=== PATIENT | female | born 1955 | race Caucasian/White ===

== ENCOUNTER 2016-11-05 05:27 | Inpatient (IN) ==
[2016-11-05] MEDS ORDERED: VANCOMYCIN INJ 1,000 MG in SODIUM CHLORIDE 0.9% 250 ML IV ONE (06:00)
[2016-11-05] MEDS ORDERED: CLINDAMYCIN INJ 900 MG in PREMIX 1 EACH IV ONE (06:00)
[2016-11-05] MEDS ORDERED: VANCOMYCIN 1,000 MG VIAL ONE (06:22)
[2016-11-05] MEDS ORDERED: CLINDAMYCIN INJ 50 ML IV ONE (06:22)
[2016-11-05] MEDS ORDERED: TRANEXAMIC ACID 1,000 MG/10 ML VIAL IV ONE (06:45)
[2016-11-05] MEDS ORDERED: PROMETHAZINE 25 MG/1 ML VIAL ONE (07:02)
[2016-11-05] MEDS ORDERED: LIDOCAINE 1% 5 ML VIAL ONE (07:02)
[2016-11-05] MEDS ORDERED: ONDANSETRON 4 MG/2 ML VIAL ONE (07:02)
[2016-11-05] MEDS ORDERED: PHENYLEPHRINE 1 MG/10 ML SYRINGE IV ONE (07:02)
[2016-11-05] MEDS ORDERED: PROPOFOL 200 MG/20 ML VIAL IV ONE (07:02)
--- NOTE | 2016-11-05 07:03 | History and Physical Update ---
History and Physical Update - History and Physical H&P was reviewed, the patient examined and there: are no changes in the patients condition since last H&P was completed.
[2016-11-05] MEDS: LACTATED RINGERS 1,000 ML IV SCH ×2 (07:05→15:46)
[2016-11-05] MEDS ORDERED: MAGNESIUM HYDROXIDE SUSP 30 ML UDCUP PO PRN (07:05)
[2016-11-05] MEDS ORDERED: PROMETHAZINE 25 MG/1 ML VIAL IM PRN (07:05)
[2016-11-05] MEDS ORDERED: LACTULOSE 20 GM/30 ML UDCUP PO PRN (07:05)
[2016-11-05] MEDS ORDERED: diphenhydrAMINE CAP 25 MG CAPSULE PO PRN (07:05)
[2016-11-05] MEDS ORDERED: ONDANSETRON 4 MG/2 ML VIAL IV PRN (07:05)
[2016-11-05] MEDS ORDERED: HYDROmorphone 2 MG/1 ML VIAL IV PRN (07:05)
[2016-11-05] MEDS ORDERED: NALOXONE 0.4 MG/ML VIAL IV PRN (07:05)
[2016-11-05] MEDS ORDERED: BISACODYL 10 MG SUPP RECTAL PRN (07:05)
[2016-11-05] MEDS ORDERED: TEMAZEPAM 7.5 MG CAPSULE PO PRN (07:05)
[2016-11-05] MEDS ORDERED: ROPIVACAINE 0.5% 30 ML VIAL ONE (07:46)
[2016-11-05] MEDS ORDERED: HYDROmorphone PCA 30 MG/30 ML SYRINGE IV ONE (08:52)
[2016-11-05] MEDS: HYDROmorphone PCA 30 MG/30 ML SYRINGE IV SCH (09:08)
--- NOTE | 2016-11-05 09:23 | Anesthesia Post-Op ---
Anesthesia Post OP - Post Ansesthetic Evaluation Patient seen in post op: Yes Resp: within normal limits CV: within normal limits Mental: within normal limits Temp: within normal limits [id number]: within normal limits Nausea and Vomiting: within normal limits Pain: within normal limits
--- NOTE | 2016-11-05 09:36 | XRay Report ---
Exam: XR knee 2V LT Date: 11/05/2016 7:08 AM Comparison: None Indication: Left knee replacement Technique:[AP and lateral left knee] Findings: Recent satisfactory left total knee replacement with postoperative findings. Impression: Recent satisfactory left total knee replacement. PROCEDURE INTERPRETED AT [facility] DEPARTMENT OF RADIOLOGY Final Report Signed by: Dr. Latrice Yepez
[2016-11-05] MEDS ORDERED: fentaNYL 100 MCG/2 ML VIAL ONE (10:53)
[2016-11-05] MEDS ORDERED: MIDAZOLAM 2 MG/2 ML VIAL ONE (10:53)
[2016-11-05] MEDS ORDERED: CLINDAMYCIN INJ 900 MG in PREMIX 1 EACH IV SCH (11:07)
--- NOTE | 2016-11-05 14:52 | Operative Note ---
DATE OF SURGERY: 11/05/2016 PREOPERATIVE DIAGNOSIS: OSTEOARTHRITIS LEFT KNEE. POSTOPERATIVE DIAGNOSIS: SAME OPERATIVE PROCEDURE: Left total knee (ATT[place]E). SURGEON: Devon Garcia Jr., MD NONPROFIT MANAGER: Alisa ANESTHESIA: Spinal. INDICATIONS: A 60-year-old white female with a longstanding osteoarthritis to her left knee. She rabago s maximized conservative treatment through the years including multiple injections, she has had a pre vious arthroscopic procedure performed as well. In recent months, she has had steadily worsening sym ptoms of pain, functional limitation, effusion, recently evaluated for big candidate for knee arthrop lasty. She presents today for elective procedure. OPERATIVE PROCEDURE: The patient was taken to the operating room under spinal anesthetic, positioned in the supine position. The left leg was positioned, prepped and draped in usual sterile manner. T he limb was elevated, exsanguinated, and the tourniquet inflated to 300 mmHg. She received Vancomyci n and Cleocin preoperatively. A midline incision was made over the anterior aspect of the left knee. Sharp dissection was carried down through skin and subcutaneous tissue. A median parapatellar arth rotomy performed of the knee revealing extensor tricompartmental degenerative changes and osteophytes involving all three compartments. There was significant cartilage loss medially. Intramedullary al ignment guides were used to make the appropriate cuts about the distal femur and proximal tibia, both were sized to a 5. The PCL retained, a 7-mm fixed bearing spacer selected. The patella was resurfa anil with a 35 button. After removal of all the trial components, the knee copiously irrigated and al l three components were cemented into place. After the cement hardened, the wound was closed over tw o 1/8-inch Hemovac drains in a standard fashion using #1 Vicryl for the arthrotomy, 2-0 Vicryl for th e subcutaneous layer and vanessa for skin. Tourniquet was deflated during wound closure at 34 minute s. Sterile dressing was applied. She was taken to the recovery room in a stable condition.
--- NOTE | 2016-11-05 15:32 | Pulmonology Progress Note ---
Pulmonary - PN: Subj Interval history: Patient is a 60-year-old white lady that has degenerative arthritis. She came in today and had a left knee replacement. She has a history of hypertension but otherwise been quite healthy. She did well with surgery today and is stable postop. She says she is not having any trouble breathing and is reasonably comfortable. She did not have any problem with anesthesia. Exam (Progress Note) - Constitutional Vitals: Period Temp Pulse Resp BP Sys/Kirkland Pulse Ox Last 24 Hr 97.2 F-97.9 F 61-76 16-20 100-138/67-94 97-100 General appearance: normal weight, no acute distress - Head Head exam: Present: normal inspection, normocephalic - Eye Eye exam: Present: EOMI. Absent: scleral icterus Pupils: Present: KACI - ENT ENT exam: Present: normal exam - Neck Neck exam: Present: normal inspection. Absent: lymphadenopathy, thyromegaly - Respiratory Respiratory exam: Present: clear to auscultation bilaterally - Cardiovascular Cardiovascular exam: Present: regular rate and rhythm. Absent: gallop, systolic murmur - GI/Abdominal GI/Abdominal exam: Present: normal bowel sounds, soft. Absent: organomegaly, tenderness - Extremities Exam Extremities exam: Present: other (Left knee is wrapped.) - Back Exam Back exam: Present: normal inspection - Neurological Exam Neurological exam: Present: alert, oriented X3, CN II-XII intact. Absent: motor sensory deficit - Psychiatric Psychiatric exam: Present: normal affect, normal mood - Skin Skin exam: Present: warm, dry Assessment and Plan (1) Osteoarthritis Status: Acute Assessment and plan: Patient has significant arthritis and comes in for knee replacement. Current Visit: Yes (2) Hypertension Status: Acute Assessment and plan: The patient appears to be medically stable at present. Current Visit: Yes (3) Status post total left knee replacement Status: Acute Assessment and plan: The patient had a knee replacement today and is doing well postop. She will start vigorous physical therapy soon. Current Visit: Yes
[2016-11-05] MEDS: NEBIVOLOL 5 MG TABLET PO SCH (15:45)
[2016-11-05] MEDS: CHLORTHALIDONE 25 MG TABLET PO SCH (15:45)
[2016-11-05] MEDS: DOCUSATE SODIUM 100 MG CAPSULE PO SCH ×2 (15:46→20:10)
[2016-11-05] MEDS: MELOXICAM 7.5 MG TABLET PO SCH (17:21)
[2016-11-05] MEDS: OMEGA 3 ACID ETHYL ESTERS 1 GM CAPSULE PO SCH (17:21)
[2016-11-05] MEDS: MAGNESIUM OXIDE 400 MG TABLET PO SCH (17:21)
[2016-11-05] MEDS: PANTOPRAZOLE 40 MG TABLET PO SCH (17:22)
[2016-11-05] MEDS: CLINDAMYCIN INJ 900 MG in PREMIX 1 EACH IV SCH (17:22)
--- NOTE | 2016-11-05 17:33 | Orthopedic Progress Note ---
Orthopedics - Subjective Interval history: Comfortable neurovascular intact discussed up in a.m. Exam - Constitutional Vitals: Period Temp Pulse Resp BP Sys/Kirkland Pulse Ox Last 24 Hr 97.1 F-97.9 F 61-76 16-20 100-138/67-94 97-100
[2016-11-06] MEDS: CLINDAMYCIN INJ 900 MG in PREMIX 1 EACH IV SCH (00:56)
[2016-11-06] MEDS: FONDAPARINUX 2.5 MG/0.5 ML SYRINGE SUBCUT SCH (03:48)
[2016-11-06 05:07] LABS: Basophils % 0.2 % (0.0-0.8); Eosinophils % 0.1 % (0.00-10.9); Hematocrit 34.9 VOL% (35.7-47.0); Hemoglobin 11.7 GM/DL (12.0-16.0); Immature Granulocytes % 0.6 %; Immature Granulocytes Absolute 0.07 #; Lymphocytes # 0.7 10*3/uL (1.4-4.0); Lymphocytes % 6.1 % (21.3-54.2); Mean Corpuscular HGB Conc 33.5 GM/DL (32-36); Mean Corpuscular Hemoglobin 30 PG (27-34); Mean Corpuscular Volume 88.4 FL (87-102); Mean Platelet Volume 11.2 FL (9.6-12.0); Monocytes % 8.6 % (1.7-12.7); Neutrophils # 10.1 10*3/uL (1.4-7.4); Neutrophils % 84.4 % (38.7-73.9); Platelet Count 172 T/CUMM (130-400); Red Blood Count 3.95 MC/CUMM (3.8-5.5); Red Cell Distribution Width 13.2 % (9.3-17.3); White Blood Count 11.9 T/CUMM (4-12)
[2016-11-06 05:34] LABS: Calcium 8.7 MG/DL (8.5-10.1); Osmolality,Calculated 285.3 MOS/KG (273-304); Potassium 4.1 MMOL/L (3.5-5.1)
[2016-11-06] MEDS: LACTATED RINGERS 1,000 ML IV SCH ×2 (06:10→18:59)
[2016-11-06] MEDS: HYDROmorphone PCA 30 MG/30 ML SYRINGE IV SCH (08:15)
--- NOTE | 2016-11-06 08:21 | Orthopedic Progress Note ---
Orthopedics - Subjective Interval history: H&H stable drain removed neurovascular intact ready to start PT likely home over the weekend with home health Exam - Constitutional Vitals: Period Temp Pulse Resp BP Sys/Kirkland Pulse Ox Last 24 Hr 97.1 F-97.9 F 61-83 16-20 100-142/66-94 95-100 Results - Labs CBC & BMP: 11/06/16 03:30 11/06/16 03:30 Specialty Discharge - Follow Up or Referrals Follow up with: Devon Garcia Jr., MD [Physician] -
[2016-11-06] MEDS: PANTOPRAZOLE 40 MG TABLET PO SCH (09:07)
[2016-11-06] MEDS: MAGNESIUM OXIDE 400 MG TABLET PO SCH (09:07)
[2016-11-06] MEDS: NEBIVOLOL 5 MG TABLET PO SCH (09:07)
[2016-11-06] MEDS: DOCUSATE SODIUM 100 MG CAPSULE PO SCH ×2 (09:07→20:11)
[2016-11-06] MEDS: OMEGA 3 ACID ETHYL ESTERS 1 GM CAPSULE PO SCH (09:07)
[2016-11-06] MEDS: MELOXICAM 7.5 MG TABLET PO SCH (09:07)
[2016-11-06] MEDS: CHLORTHALIDONE 25 MG TABLET PO SCH (09:07)
--- NOTE | 2016-11-06 10:24 | Pulmonology Progress Note ---
Pulmonary - PN: Subj Interval history: Patient is a 60-year-old white lady that has degenerative arthritis. She came in and had a left knee replacement. She has a history of hypertension but otherwise been quite healthy. She did well with surgery and had a fairly good night last night. She has not started any physical therapy yet. She says she did not sleep very well but she is relatively comfortable. She is not having any trouble with her breathing. Exam (Progress Note) - Constitutional Vitals: Period Temp Pulse Resp BP Sys/Kirkland Pulse Ox Last 24 Hr 97.1 F-97.9 F 61-83 16-20 103-142/66-87 95-100 Exam: General appearance: normal weight, no acute distress, she is comfortable lying in bed. - Head Head exam: Present: normal inspection, normocephalic - Eye Eye exam: Present: EOMI. Absent: scleral icterus Pupils: Present: KACI - ENT ENT exam: Present: normal exam - Neck Neck exam: Present: normal inspection. Absent: lymphadenopathy, thyromegaly - Respiratory Respiratory exam: Present: clear to auscultation bilaterally. She has no rales or wheezing present. - Cardiovascular Cardiovascular exam: Present: regular rate and rhythm. Absent: gallop, systolic murmur - GI/Abdominal GI/Abdominal exam: Present: normal bowel sounds, soft. Absent: organomegaly, tenderness - Extremities Exam Extremities exam: Present: other (Left knee is wrapped. Her lower leg is not swollen badly and she is moving it okay.) - Back Exam Back exam: Present: normal inspection - Neurological Exam Neurological exam: Present: alert, oriented X3, CN II-XII intact. Absent: motor sensory deficit - Psychiatric Psychiatric exam: Present: normal affect, normal mood - Skin Skin exam: Present: warm, dry Results - Labs CBC & BMP: 11/06/16 03:30 11/06/16 03:30 Assessment and Plan (1) Osteoarthritis Status: Acute Assessment and plan: Patient has significant arthritis and comes in for knee replacement. She did well with surgery yesterday. Current Visit: Yes (2) Hypertension Status: Acute Assessment and plan: The patient appears to be medically stable at present. She continues to do well. Current Visit: Yes (3) Status post total left knee replacement Status: Acute Assessment and plan: The patient had a knee replacement today and is doing well postop. She will start physical therapy today. Current Visit: Yes Specialty Discharge - Follow Up or Referrals Follow up with: Devon Garcia Jr., MD [Physician] -
--- NOTE | 2016-11-06 11:19 | Pathology Report from [facility] ---
[facility] [place] : [id number] PATIENT NAME : Melodie Wilkes ORDERING DR : YUMIKO CASTILLO JR, MD CLINICAL HX: LT knee osteoarthritis POST-OP DX: Same SPECIMEN INFO: LT knee bone & tissue GROSS DESCRIPTION: Received in formalin labeled MELODIE WILKES is an aggregate of bone, soft tissue and cartilage measuring 14.0 x 6.0 cm. The articular surfaces are focally degenerative with no subchondral eburnation seen. [employer] Supervisor tissue is submitted in one cassette. DIAGNOSIS FOR MELODIE WILKES: LEFT KNEE BONE & TISSUE: Gross and microscopic findings consistent with osteoarthritis. COLLECTED DATE: 11/05/2016 [facility] REPORT DATE: 11/06/2016 ELECTRONICALLY SIGNED BY: Yi Diehl III, M.D. 11/06/2016 - 9:27:46 [facility]
[2016-11-07] MEDS: FONDAPARINUX 2.5 MG/0.5 ML SYRINGE SUBCUT SCH (00:41)
[2016-11-07 06:25] LABS: Basophils % 0.1 % (0.0-0.8); Eosinophils # 0.1 10*3/uL (0.0-0.87); Eosinophils % 0.5 % (0.00-10.9); Hematocrit 34.5 VOL% (35.7-47.0); Hemoglobin 11.6 GM/DL (12.0-16.0); Immature Granulocytes % 0.6 %; Immature Granulocytes Absolute 0.06 #; Lymphocytes # 0.8 10*3/uL (1.4-4.0); Lymphocytes % 7.5 % (21.3-54.2); Mean Corpuscular HGB Conc 33.6 GM/DL (32-36); Mean Corpuscular Hemoglobin 30 PG (27-34); Mean Corpuscular Volume 88.2 FL (87-102); Mean Platelet Volume 10.7 FL (9.6-12.0); Monocytes # 0.8 10*3/uL (0.11-0.8); Monocytes % 7.5 % (1.7-12.7); Neutrophils # 8.8 10*3/uL (1.4-7.4); Neutrophils % 83.8 % (38.7-73.9); Platelet Count 177 T/CUMM (130-400); Red Blood Count 3.91 MC/CUMM (3.8-5.5); White Blood Count 10.5 T/CUMM (4-12)
[2016-11-07 06:43] LABS: Hypochromasia 1+
[2016-11-07 06:44] LABS: Platelet Estimate Normal
--- NOTE | 2016-11-07 09:11 | Orthopedic Progress Note ---
Orthopedics - Subjective Interval history: Comfortable dressing dry mobilizing in the [place]una likely home with home health over the weekend Exam - Constitutional Vitals: Period Temp Pulse Resp BP Sys/Kirkland Pulse Ox Last 24 Hr 97.6 F-98.3 F 76-81 18-20 101-126/67-76 91-95 Results - Labs CBC & BMP: 11/07/16 05:51 11/06/16 03:30 Specialty Discharge - Follow Up or Referrals Follow up with: Devon Garcia Jr., MD [Physician] -
--- NOTE | 2016-11-07 09:16 | Pulmonology Progress Note ---
Pulmonary - PN: Subj Interval history: Patient is a 60-year-old white lady that has degenerative arthritis. She came in and had a left knee replacement. She has a history of hypertension but otherwise been quite healthy. She did well with physical therapy yesterday and is moving around better. She says she still did not sleep very well. Otherwise she feels like she is doing better. Exam (Progress Note) - Constitutional Vitals: Period Temp Pulse Resp BP Sys/Kirkland Pulse Ox Last 24 Hr 97.6 F-98.3 F 76-81 18-20 101-126/67-76 91-95 Exam: General appearance: normal weight, no acute distress, she is comfortable lying in bed. She is not having any respiratory problems. - Head Head exam: Present: normal inspection, normocephalic - Eye Eye exam: Present: EOMI. Absent: scleral icterus Pupils: Present: KACI - ENT ENT exam: Present: normal exam - Neck Neck exam: Present: normal inspection. Absent: lymphadenopathy, thyromegaly - Respiratory Respiratory exam: Present: clear to auscultation bilaterally. She has no rales or wheezing present. - Cardiovascular Cardiovascular exam: Present: regular rate and rhythm. Absent: gallop, systolic murmur - GI/Abdominal GI/Abdominal exam: Present: normal bowel sounds, soft. Absent: organomegaly, tenderness - Extremities Exam Extremities exam: Present: other (Left knee is wrapped. Her lower leg is not swollen badly and she is moving it okay. She is getting around a little better. ) - Back Exam Back exam: Present: normal inspection - Neurological Exam Neurological exam: Present: alert, oriented X3, CN II-XII intact. Absent: motor sensory deficit - Psychiatric Psychiatric exam: Present: normal affect, normal mood - Skin Skin exam: Present: warm, dry Results - Labs CBC & BMP: 11/07/16 05:51 11/06/16 03:30 Assessment and Plan (1) Osteoarthritis Status: Acute Assessment and plan: Patient has significant arthritis and comes in for knee replacement. She continues to do well postop. Current Visit: Yes (2) Hypertension Status: Acute Assessment and plan: The patient appears to be medically stable at present. She continues to do well. She is doing well with physical therapy. Current Visit: Yes (3) Status post total left knee replacement Status: Acute Assessment and plan: The patient had a knee replacement and continues to do well postop. She will probably go home tomorrow. Current Visit: Yes Specialty Discharge - Follow Up or Referrals Follow up with: Devon Garcia Jr., MD [Physician] -
[2016-11-07] MEDS ORDERED: TEMAZEPAM 7.5 MG CAPSULE PO PRN (09:17)
[2016-11-07] MEDS: MELOXICAM 7.5 MG TABLET PO SCH (10:28)
[2016-11-07] MEDS: NEBIVOLOL 5 MG TABLET PO SCH (10:28)
[2016-11-07] MEDS: OMEGA 3 ACID ETHYL ESTERS 1 GM CAPSULE PO SCH (10:28)
[2016-11-07] MEDS: MAGNESIUM OXIDE 400 MG TABLET PO SCH (10:28)
[2016-11-07] MEDS: CHLORTHALIDONE 25 MG TABLET PO SCH (10:28)
[2016-11-07] MEDS: PANTOPRAZOLE 40 MG TABLET PO SCH (10:28)
[2016-11-07] MEDS: DOCUSATE SODIUM 100 MG CAPSULE PO SCH ×2 (10:29→20:21)
[2016-11-07] MEDS: LACTATED RINGERS 1,000 ML IV SCH (11:54)
[2016-11-08] MEDS: FONDAPARINUX 2.5 MG/0.5 ML SYRINGE SUBCUT SCH (01:57)
--- NOTE | 2016-11-08 08:46 | Orthopedic Progress Note ---
Orthopedics - Subjective Interval history: Comfortable tolerating PT well home likely tomorrow after PT Exam - Constitutional Vitals: Period Temp Pulse Resp BP Sys/Kirkland Pulse Ox Last 24 Hr 97.6 F-99.0 F 71-88 18-20 103-130/63-76 91-97 Results - Labs CBC & BMP: 11/07/16 05:51 11/06/16 03:30 Specialty Discharge - Follow Up or Referrals Follow up with: Devon Garcia Jr., MD [Physician] - 12/05/16 8:15 am
[2016-11-08] MEDS: MELOXICAM 7.5 MG TABLET PO SCH (08:48)
[2016-11-08] MEDS: CHLORTHALIDONE 25 MG TABLET PO SCH (08:48)
[2016-11-08] MEDS: DOCUSATE SODIUM 100 MG CAPSULE PO SCH ×2 (08:48→21:38)
[2016-11-08] MEDS: NEBIVOLOL 5 MG TABLET PO SCH (08:48)
[2016-11-08] MEDS: MAGNESIUM OXIDE 400 MG TABLET PO SCH (08:49)
[2016-11-08] MEDS: OMEGA 3 ACID ETHYL ESTERS 1 GM CAPSULE PO SCH (08:49)
[2016-11-08] MEDS: PANTOPRAZOLE 40 MG TABLET PO SCH (08:49)
[2016-11-09] MEDS: FONDAPARINUX 2.5 MG/0.5 ML SYRINGE SUBCUT SCH (01:27)
--- NOTE | 2016-11-09 07:26 | Orthopedic Progress Note ---
Orthopedics - Subjective Interval history: Mobilizing fairly independent in the room with walker advancing with weight- bear PT going well home today after PT instructed Exam - Constitutional Vitals: Period Temp Pulse Resp BP Sys/Kirkland Pulse Ox Last 24 Hr 97.2 F-97.9 F 68-75 16-21 86-112/52-76 93-95 Results - Labs CBC & BMP: 11/07/16 05:51 11/06/16 03:30 Specialty Discharge - Follow Up or Referrals Follow up with: Devon Garcia Jr., MD [Physician] - 12/05/16 8:15 am
--- NOTE | 2016-11-09 07:28 | Discharge Summary ---
Hospital Course - Hospital Course Hospital Course: Admitted for elective left total knee discharged home Diagnosis - Discharge Diagnosis (1) Osteoarthritis of left knee Status: Acute Specialty Discharge - Follow Up or Referrals Follow up with: Devon Garcia Jr., MD [Physician] - 12/05/16 8:15 am Discharge Plan - Discharge Data Disposition: Home Health Service Discharge Diet: advance to your usual diet Activity: ambulate only with your walker, as per physical therapy, increase activity as tolerated Hygiene: may shower, keep area(s) dry Weight Bearing at Discharge: weight bear as tolerated Driving: not until seen by doctor - Discharge Medications New HYDROcodone/ACETAMIN 7.5-325 [[place] 7.5-325] 2 tablet PO Q4H PRN #30 tablet PRN Reason: Moderate Pain unrelieved by 1 Continue Nebivolol [Bystolic] 5 mg PO DAILY Chlorthalidone 25 mg PO DAILY Esomeprazole Magnesium [Nexium] 20 mg PO DAILY Magnesium Oxide 400 mg PO DAILY Meloxicam [Mobic] 15 mg PO DAILY - Follow Up or Referral Follow Up: Devon Garcia Jr., MD [Physician] - 12/05/16 8:15 am - Forms/Instructions Instructions: Total Knee Replacement (DC) Additional Discharge Instructions: Discharge to home discharge medications Narco as needed aspirin once a day resume home meds total knee protocol with weightbearing as tolerated vanessa to be removed and wound Steri-Stripped November 19. Follow-up appointment approximately 4 week Exam - Constitutional Vitals: Period Temp Pulse Resp BP Sys/Kirkland Pulse Ox Last 24 Hr 97.2 F-97.9 F 68-75 16-21 86-112/52-76 93-95 DS: Provider Date of admission: 11/05/16 05:27 Primary care physician: Danitza Concepcion NP Attending physician on admission: Devon Garcia Jr., MD Consults: 11/05/16 07:05 Consult to Case Mgmt/Social Srvs [CONS] Routine Reason for Case Mgmt/Social Srvs: Rehab Home Health Equipment Consult Comment: [employer] [facility] Deliver to [address] on Thursday before D/C, f/home rehab. Consult to Occupational Therapy [CONS] Routine Reason for Occupational Therapy: Evaluate and Treat Consult Comment: ADL's Consult to Physical Therapy [CONS] Routine Reason for Physical Therapy: Evaluate and Treat Gait Training Consult Comment: Weight-bear as tolerated total knee protocol 11/05/16 07:08 Consult to Physician [CONS] Routine Comment: Consulting Provider: 11/05/16 10:20 Consult to Physician [CONS] Routine Comment: Consulting Provider: Aiden Mckeon Consulting Provider Notified: Yes When should Consulting Provider be notified: Now Person Notified: lilia johnson Date Notified: 11/05/16 Time Notified: 11:12 Discharging clinician: Devon Garcia Jr.,
[2016-11-09 08:10] VITALS: BP 117/67
[2016-11-09] MEDS: DOCUSATE SODIUM 100 MG CAPSULE PO SCH (08:47)
[2016-11-09] MEDS: MELOXICAM 7.5 MG TABLET PO SCH (08:48)
[2016-11-09] MEDS: MAGNESIUM OXIDE 400 MG TABLET PO SCH (08:49)
[2016-11-09] MEDS: PANTOPRAZOLE 40 MG TABLET PO SCH (08:49)
[2016-11-09] MEDS: OMEGA 3 ACID ETHYL ESTERS 1 GM CAPSULE PO SCH (08:50)
[2016-11-09] MEDS: CHLORTHALIDONE 25 MG TABLET PO SCH (08:55)
[2016-11-09] MEDS: NEBIVOLOL 5 MG TABLET PO SCH (08:55)
== END 2016-11-09 10:48 | disposition home health service (06) | DRG 470 ==
LOC: N.SDSINP 05:27 → N.3E 09:59
PROVIDERS: ADMIT Orthopaedic Surgery; ATTEND Orthopaedic Surgery